=== PATIENT | female | born 1935 | race Caucasian/White ===

== ENCOUNTER → 2017-04-06 | Outpatient (CLI) | payer OTHER, BC | LOC: RAD 08:10 | DX: J44.9 Chronic obstructive pulmonary disease, unspecified (principal) ==

== ENCOUNTER → 2018-01-06 | Outpatient (CLI) | payer OTHER, BC ==
--- NOTE | ~2018-01-06 | 2DMMODE ---
[facility] [address] [place] [address] 2 D/M-MODE ECHOCARDIOGRAM Name: URY VANN Room #: REG [facility]#: [id number] Admission: 01/06/18 Attend Phys: Devon Ohara, Discharge: Date of : 31 Date of Service: 01/06/18 1603 Report #: [id number] THIS REPORT FOR: //name// APPROVED REPORT Study performed: 01/06/2018 14:07:12 EXAM: Comprehensive 2D, Doppler, and color-flow Echocardiogram Patient Location: Out-Patient Room #: Echo lab 2 Status: routine BSA: 1.62 HR: 104 bpm BP: 161/91 mmHg Other Information Study Quality: Adequate Indications COPD Dyspnea 2D Dimensions RVDd: 24.37 mm LVEF(%): 80.70 (>50%) IVSd: 11.47 (7-11mm) LVOT Diam: 20.42 (18-24mm) LVDd: 40.11 mm PWd: 10.20 (7-11mm) Ascending Ao: 31.93 (22-36mm) LVDs: 20.53 (25-40mm) Aortic Root: 28.04 mm IVC: 11.00 mm Saucedo's LVEF: 80.70 % Volumes Left Atrial Volume (Systole) Single Plane 4CH: 17.14 mL Single Plane 2CH: 17.05 mL LA ESV Index: 12.00 mL/m2 Aortic Valve AoV Peak Cameron.: 1.43 m/s AO Peak Gr.: 8.22 mmHg LVOT Max P.48 mmHg LVOT Max V: 1.17 m/s MARIELOS Vmax: 2.67 cm2 Mitral Valve E/A Ratio: 0.5 MV Decel. Time: 94.72 ms [facility] [place] [address] 2 D/M-MODE ECHOCARDIOGRAM Name: RUY VANN Room #: REG [facility]#: [id number] Admission: 01/06/18 Attend Phys: Devon Ohara, Discharge: Date of : 31 Date of Service: 01/06/18 1603 Report #: [id number] MV E Max Cameron.: 0.70 m/s MV A Cameron.: 1.51 m/s MV PHT: 27.47 ms IVRT: 100.35 ms Pulmonary Valve PV Peak Cameron.: 1.11 m/s PV Peak Gr.: 4.94 mmHg Left Ventricle The left ventricle is normal size. There is normal LV segmental wall motion. There is normal left ventricular wall thickness. The left ventricular systolic function is normal. The left ventricular ejection fraction is within the normal range. LVEF is 60-65%. This study is not technically sufficient to allow evaluation of the LV diastolic function. Right Ventricle The right ventricle is normal size. The right ventricular systolic function is normal. Atria The left atrium size is normal. The right atrium size is normal. Aortic Valve The aortic valve is normal in structure. Aortic valve is calcified. No aortic regurgitation is present. There is no aortic valvular stenosis. Mitral Valve The mitral valve is normal in structure. There is no mitral valve regurgitation noted. No evidence of mitral valve stenosis. Tricuspid Valve The tricuspid valve is normal in structure. There is no tricuspid valve regurgitation noted. Pulmonic Valve The pulmonary valve is normal in structure. There is no pulmonic valvular regurgitation. Great Vessels The aortic root is normal in size. IVC is normal in size and collapses >50% with inspiration. Pericardium [facility] [address] [place] [address] 2 D/M-MODE ECHOCARDIOGRAM Name: RUY VANN [id number] Admission: 01/06/18 Attend Phys: Devon Ohara, Discharge: Date of : 31 Date of Service: 01/06/18 1603 Report #: [id number] There is no pericardial effusion. <Conclusion> The left ventricle is normal size. LVEF is 60-65%. The aortic valve is normal in structure. Aortic valve is calcified. The mitral valve is normal in structure. The tricuspid valve is normal in structure. The pulmonary valve is normal in structure. There is no pericardial effusion. <ELECTRONICALLY SIGNED> By: Carlos Morton MD 01/06/18 1603 1603 1603 Carlos Morton MD /INF
== END ==
LOC: CV 11:41
DX: I70.0 Atherosclerosis of aorta (principal); J44.9 Chronic obstructive pulmonary disease, unspecified; K21.9 Gastro-esophageal reflux disease without esophagitis

== ENCOUNTER → 2018-04-06 | Outpatient (CLI) | payer OTHER, BC | LOC: RAD 14:43 | DX: J44.9 Chronic obstructive pulmonary disease, unspecified (principal); M19.011 Primary osteoarthritis, right shoulder; M19.012 Primary osteoarthritis, left shoulder ==

== ENCOUNTER → 2021-07-08 | Outpatient (CLI) | payer OTHER, BC | LOC: RAD 13:25 | PROVIDERS: ATTEND Internal Medicine | DX: J44.9 Chronic obstructive pulmonary disease, unspecified (principal); M81.0 Age-related osteoporosis without current pathological fracture ==